=== PATIENT | male | born 1990 | race African-American/Black ===

== ENCOUNTER → 2024-01-22 | Emergency (ER) | payer SELFPAY ==
--- NOTE | 2024-01-22 22:07 | RAD REPORT ---
EXAM DESCRIPTION: RAD - Hip Left 2 View - 01/22/2024 9:59 pm CLINICAL HISTORY: PAIN COMPARISON: No comparisons FINDINGS: Three screws are present in the proximal left femur. The proximal aspects of the 3 screws are in the soft tissues adjacent to the femur laterally. No hardware loosening suspected.
--- NOTE | 2024-01-22 22:21 | EDPHYS ---
Physician Documentation [facility] Name: Sherice Nunez Age: 33 yrs Sex: Male : 1990 Arrival Date: 01/22/2024 Time: 21:00 Bed 20 Private MD: ED Physician Julian Pollack HPI: 01/21 22:19 This 33 yrs old Black Male presents to ER via Ambulatory with complaints of Hip Pain. kb 22:19 Patient is a 33-year-old male who presents for left hip pain that started 3 to 4 days kb ago after playing basketball. States he had hip surgery last year so he wanted to make sure that everything was okay. Ambulates with steady gait, full range of motion.. Historical: - Allergies: 21:34 No Known Allergies; jb4 - PMHx: 21:34 None; jb4 - PSHx: 21:36 left hip; jb4 - Immunization history:: Adult Immunizations up to date. - Social history:: Smoking status: Patient reports the use of cigarette tobacco products, smokes one-half pack cigarettes per day. ROS: 22:18 Constitutional: As per HPI kb Exam: 22:18 Constitutional: This is a well developed, well nourished patient who is awake, alert, kb and in no acute distress. Head/Face: Normocephalic, atraumatic. ENT: Moist Mucous membranes Cardiovascular: Regular rate Respiratory: Respirations even and unlabored. No increased work of breathing. Talking in full sentences Skin: Warm, dry with normal turgor. Normal color. MS/ Extremity: Pulses equal, no cyanosis. Neurovascular intact. Full, normal range of motion. Neuro: Awake and alert, GCS 15, oriented to person, place, time, and situation. Moves all extremities. Normal gait. Vital Signs: 21:30 BP 125 / 61; Pulse 61; Resp 16; Temp 97.9(O); Pulse Ox 97% on R/A; Weight 54.43 kg (R); jb4 Height 5 ft. 10 in. (R); 21:30 Body Mass Index 17.22 (54.43 kg, 177.8 cm) jb4 MDM: 21:03 Patient medically screened. kb 22:18 Differential diagnosis: strain, loosening hardware. Data reviewed: vital signs, nurses kb notes. Counseling: I had a detailed discussion with the patient and/or guardian regarding the historical points, exam findings, and any diagnostic results supporting the discharge/admit diagnosis, radiology results, the need for outpatient follow up, a orthopedic surgeon, to return to the emergency department if symptoms worsen or persist or if there are any questions or concerns that arise at home. 01/21 21:23 Order name: Hip Left 2 View XRAY; Complete Time: 22:17 kb Administered Medications: No medications were administered Disposition: 23:38 Co-signature as Attending Physician, Julian Pollack MD I agree with the assessment sp4 and plan of care. I reviewed the patient's care provided by the Advanced Practice Provider and agree with the diagnosis and treatment plan. Disposition Summary: 01/22/24 22:20 Discharge Ordered Notes: Location: Home kb Condition: Stable kb Diagnosis - Pain in left hip kb Followup: kb - With: Emergency Department - When: As needed - Reason: Worsening of condition Followup: kb - With: Private Physician - When: 2 - 3 days - Reason: Recheck today's complaints, Continuance of care, Re-evaluation by your physician Discharge Instructions: - Discharge Summary Sheet kb - Musculoskeletal Pain kb Forms: - Medication Reconciliation Form kb - Thank You Letter kb - Antibiotic Education kb - Prescription Opioid Use kb - Patient Portal Instructions kb - Leadership Thank You Letter kb Signatures: Dispatcher [employer] Merle Harper, JOANA-C JOANA-Brady Crook RN RN Julian George MD MD sp4 Corrections: (The following items were deleted from the chart) 21:36 21:34 PSHx: None; rayray seo
--- NOTE | 2024-01-22 22:21 | ER ---
Nurse's Notes [facility] Name: Sherice Nunez Age: 33 yrs Sex: Male : 1990 Arrival Date: 01/22/2024 Time: 21:00 Bed 20 Private MD: Diagnosis: Pain in left hip Presentation: 01/21 21:30 Chief complaint: Patient states: I was playing basketball a few days ago and think I jb4 pulled a muscle in my left hip. There is a bulge there now. I had surgery on my left hip after breaking it at the beginning of last year. I just want an xray to make sure I did not mess anything up. Coronavirus screen: At this time, the client does not indicate any symptoms associated with coronavirus-19. Ebola Screen: No symptoms or risks identified at this time. Initial Sepsis Screen: Does the patient meet any 2 criteria? No. Patient's initial sepsis screen is negative. Does the patient have a suspected source of infection? No. Patient's initial sepsis screen is negative. Risk Assessment: Do you want to hurt yourself or someone else? Patient reports no desire to harm self or others. Onset of symptoms was January 22, 2024. Transition of care: patient was not received from another setting of care. 21:30 Method Of Arrival: Ambulatory jb4 21:30 Acuity: CAROLYN 4 jb4 Triage Assessment: 21:36 General: Appears in no apparent distress. comfortable, Behavior is calm, cooperative. jb4 Pain: Complains of pain in left hip Pain does not radiate. Pain currently is 5 out of 10 on a pain scale. Neuro: Level of Consciousness is awake, alert, obeys commands, Oriented to person, place, time, situation. Cardiovascular: Patient's skin is warm and dry. Respiratory: Airway is patent Respiratory effort is even, unlabored, Respiratory pattern is regular, symmetrical. Historical: - Allergies: 21:34 No Known Allergies; jb4 - PMHx: 21:34 None; jb4 - PSHx: 21:36 left hip; jb4 - Immunization history:: Adult Immunizations up to date. - Social history:: Smoking status: Patient reports the use of cigarette tobacco products, smokes one-half pack cigarettes per day. Screenin:13 [facility] ED Fall Risk Assessment (Adult) History of falling in the last 3 months, cm10 including since admission No falls in past 3 months (0 pts) Confusion or Disorientation No (0 pts) Intoxicated or Sedated No (0 pts) Impaired Gait No (0 pts) Mobility Assist Device Used No (0 pt) Altered Elimination No (0 pt) Score/Fall Risk Level 0 - 2 = Low Risk Oriented to surroundings, Maintained a safe environment, Hourly rounding (assess needs \T\ fall precautionary measures) done. Abuse screen: Denies threats or abuse. Denies injuries from another. Nutritional screening: No deficits noted. Tuberculosis screening: No symptoms or risk factors identified. Assessment: 22:14 General: Appears in no apparent distress. comfortable, Behavior is calm, cooperative. cm10 Pain: Denies pain. Neuro: No deficits noted. Level of Consciousness is awake, alert, Oriented to person, place, time, situation. Respiratory: No deficits noted. Airway is patent Respiratory effort is even, unlabored, Respiratory pattern is regular, symmetrical. Derm: No deficits noted. Skin is intact, Skin is pink, warm \T\ dry. Musculoskeletal: No deficits noted. Range of motion: intact in all extremities. 22:30 Reassessment: Patient appears in no apparent distress at this time. Patient and/or jb4 family updated on plan of care and expected duration. Pain level reassessed. Patient is alert, oriented x 3, equal unlabored respirations, skin warm/dry/pink. Vital Signs: 21:30 BP 125 / 61; Pulse 61; Resp 16; Temp 97.9(O); Pulse Ox 97% on R/A; Weight 54.43 kg (R); jb4 Height 5 ft. 10 in. (R); 21:30 Body Mass Index 17.22 (54.43 kg, 177.8 cm) jb4 ED Course: 21:03 Patient arrived in ED. mr 21:03 Merle Ely [facility]C [facility]. kb 21:03 Julian Pollack MD is Attending Physician. kb 21:34 Triage completed. jb4 21:36 Arm band placed on right wrist. jb4 22:01 Hip Left 2 View XRAY In Process Unspecified. EDMS 22:10 Rosalinda Mcdonald, RN is Primary Nurse. cm10 22:13 Patient has correct armband on for positive identification. Bed in low position. Call cm10 light in reach. Provided Education on: ER process and procedures. . Cardiac monitoring not applicable on this patient. 22:14 No provider procedures requiring assistance completed. Patient did not have IV access cm10 during this emergency room visit. Administered Medications: No medications were administered Medication: 22:13 VIS not applicable for this client. cm10 Outcome: 22:20 Discharge ordered by . celina 22:30 Discharged to home ambulatory, jbMynor 22:30 Condition: stable 22:30 Discharge instructions given to patient, Instructed on discharge instructions, follow up and referral plans. Demonstrated understanding of instructions, follow-up care, 22:30 Patient left the ED. jb4 Signatures: Dispatcher [employer] EDMS Merle Ely, WAGE ANALYST-C WAGE ANALYST-Ckb Edna Whitlock, Reg Reg mr Brady Colin, RN RN jbRosalinda Porras, LAURA RN cm10 Corrections: (The following items were deleted from the chart) 21:36 21:34 PSHx: None; rayray jbMynor
[2024-01-22 22:53] VITALS: BP 125/61; TEMP 97.9; O2SAT 97
== END ==
LOC: ER 21:00
DX: M25.552 Pain in left hip (principal)
CPT/HCPCS: 99282